=== PATIENT | female | born 1990 | race Caucasian/White ===

== ENCOUNTER 2017-02-05 17:26 | Outpatient (CLI) | payer OTHER ==
[~2017-02-05] VITALS: Ht 165.1 cm; Wt 122.0 kg
[~2017-02-05 17:26] MED LIST: ALBUTEROL SULF8.5 GM IH; CALCIUM 500 MG1 EACH PO; HYCODAN SYRUP480 ML PO; PREDNISONE20 MG PO; PRENATAL TABLE1 EAC3 PO
[2017-02-05 17:49] VITALS: BP 127/72
== END 2017-02-05 18:25 | disposition home or self-care (01) ==
LOC: LDRP-OP 17:26 → 2WEST 17:28
DX: O26.892 Other specified pregnancy related conditions, second trimester (principal); Z3A.25 25 weeks gestation of pregnancy
CPT/HCPCS: 59025; G0378

== ENCOUNTER 2017-02-13 21:26 | Outpatient (CLI) | payer OTHER ==
[2017-02-13 21:55] VITALS: BP 110/65
== END 2017-02-13 22:28 | disposition home or self-care (01) ==
LOC: LDRP-OP 21:26 → 2WEST 21:28 → LDRP-OP 06-21 19:28
DX: O26.892 Other specified pregnancy related conditions, second trimester (principal); Z3A.25 25 weeks gestation of pregnancy
CPT/HCPCS: 59025; G0378

== ENCOUNTER → 2017-02-28 | Outpatient (CLI) | payer BC ==
[2017-02-28 16:53] VITALS: BP 139/73
== END | disposition home or self-care (01) ==
LOC: IVINF 16:48
DX: Z29.13 Encounter for prophylactic Rho(D) immune globulin (principal); Z3A.28 28 weeks gestation of pregnancy
CPT/HCPCS: J2790

== ENCOUNTER 2017-04-12 17:05 | Outpatient (CLI) | payer BC ==
[2017-04-12 17:23] VITALS: BP 151/71
[2017-04-12 19:10] VITALS: BP 142/87
== END 2017-04-12 21:35 | disposition home or self-care (01) ==
LOC: LDRP-OP 17:05 → 2WEST 17:06 → LDRP-OP 06-21 22:39
DX: O9A.213 Injury, poisoning and certain other consequences of external causes complicating pregnancy, third trimester (principal); Z3A.34 34 weeks gestation of pregnancy; S80.02XA Contusion of left knee, initial encounter; W18.39XA Other fall on same level, initial encounter; Y93.F9 Activity, other caregiving; Y92.219 Unspecified school as the place of occurrence of the external cause; Y99.0 Civilian activity done for income or pay; Z87.891 Personal history of nicotine dependence
CPT/HCPCS: 59025; G0378

== ENCOUNTER 2017-05-09 11:25 | Inpatient (IN) | payer BC ==
[2017-05-09] VITALS (20 sets, daily range): BP systolic 131–185; BP diastolic 66–102
[~2017-05-09] VITALS: Ht 165.1 cm; Wt 135.0 kg
[2017-05-09 12:37] LABS: EOSINOPHIL (%) 0.6 % (0-5); EOSINOPHIL COUNT 0.1 K/uL (0-0.3); HEMATOCRIT 33.2 % (36.0-46.0); IMMATURE GRANULOCYTE (%) 0.5 % (0.0-0.7); IMMATURE GRANULOCYTE COUNT 0.1 K/uL; INSTRUMENT ABS NEUTROPHIL CT 10.6 K/uL; LYMPHOCYTE COUNT 1.1 K/uL (1.0-2.8); MCH 28.2 PG (29.0-34.0); MCHC 32.8 G/DL (30.0-36.0); MCV 85.8 FL (83-99); MEAN PLAT.VOLUME 11.6 uM^3 (9.5-12.4); MONOCYTE (%) 5.3 % (3-12); MONOCYTE COUNT 0.7 K/uL (0-0.8); NEUTROPHIL (%) 84.8 % (45-76); NEUTROPHIL COUNT 10.6 K/uL (1.8-6.4); PLATELET COUNT 192 K/uL (156-360); RBC DIS.WIDTH-CV 14.4 % (11.8-14.6); RBC DIS.WIDTH-SD 44.5 % (39-53); RED BLOOD COUNT 3.87 M/uL (3.80-5.20); WHITE BLOOD COUNT 12.4 K/uL (4.1-10.2)
[2017-05-09 13:18] LABS: ALKALINE PHOSPHATASE 150 IU/L (3-129); ANION GAP 12 MEQ/L (2-14); CHLORIDE 104 MEQ/L (99-109); GFR ESTIMATE (CALCULATED) > 59 mL/min/; GLUCOSE 75 mg/dL (70-99); POTASSIUM 4.1 MEQ/L (3.7-5.4); SAMPLE HEMOLYSIS CHECK 0; SAMPLE ICTERIC CHECK 0; SAMPLE LIPEMIA CHECK 0; SODIUM 136 MEQ/L (136-147); TOTAL BILIRUBIN 0.4 MG/DL (0.0-1.0); UREA NITROGEN (BUN) 9 mg/dL (9-23)
[2017-05-09 14:36] LABS: UR CREATININE CONCENTRATION 90.6 MG/DL
[2017-05-10] VITALS (32 sets, daily range): BP systolic 121–178; BP diastolic 61–92
[2017-05-10 19:24] LABS: EOSINOPHIL (%) 0.3 % (0-5); HEMATOCRIT 32.3 % (36.0-46.0); IMMATURE GRANULOCYTE (%) 0.5 % (0.0-0.7); IMMATURE GRANULOCYTE COUNT 0.1 K/uL; INSTRUMENT ABS NEUTROPHIL CT 10.6 K/uL; LYMPHOCYTE COUNT 1.4 K/uL (1.0-2.8); MCH 28.3 PG (29.0-34.0); MCHC 32.8 G/DL (30.0-36.0); MCV 86.4 FL (83-99); MEAN PLAT.VOLUME 11.6 uM^3 (9.5-12.4); MONOCYTE (%) 5.9 % (3-12); MONOCYTE COUNT 0.8 K/uL (0-0.8); NEUTROPHIL (%) 82.3 % (45-76); NEUTROPHIL COUNT 10.6 K/uL (1.8-6.4); PLATELET COUNT 197 K/uL (156-360); RBC DIS.WIDTH-CV 14.6 % (11.8-14.6); RBC DIS.WIDTH-SD 45.9 % (39-53); RED BLOOD COUNT 3.74 M/uL (3.80-5.20); WHITE BLOOD COUNT 12.9 K/uL (4.1-10.2)
[2017-05-10 19:44] LABS: ALKALINE PHOSPHATASE 149 IU/L (3-129); ANION GAP 9 MEQ/L (2-14); CHLORIDE 105 MEQ/L (99-109); GFR ESTIMATE (CALCULATED) > 59 mL/min/; GLUCOSE 82 mg/dL (70-99); POTASSIUM 3.8 MEQ/L (3.7-5.4); SAMPLE HEMOLYSIS CHECK 0; SAMPLE ICTERIC CHECK 0; SAMPLE LIPEMIA CHECK 0; SODIUM 136 MEQ/L (136-147); TOTAL BILIRUBIN 0.4 MG/DL (0.0-1.0); UREA NITROGEN (BUN) 8 mg/dL (9-23)
[2017-05-11] VITALS (26 sets, daily range): BP systolic 117–190; BP diastolic 65–99
[2017-05-11] MEDS ORDERED: ENDOCET 5-3251 EACH PO (16:01)
[2017-05-11] MEDS ORDERED: IBUPROFEN800 MG PO (16:01)
[2017-05-12] VITALS (25 sets, daily range): BP systolic 110–178; BP diastolic 56–99
[2017-05-12 05:43] LABS: EOSINOPHIL (%) 0.1 % (0-5); HEMATOCRIT 26.5 % (36.0-46.0); IMMATURE GRANULOCYTE (%) 0.6 % (0.0-0.7); IMMATURE GRANULOCYTE COUNT 0.1 K/uL; INSTRUMENT ABS NEUTROPHIL CT 11.8 K/uL; LYMPHOCYTE COUNT 1.4 K/uL (1.0-2.8); MCH 28.6 PG (29.0-34.0); MCHC 32.8 G/DL (30.0-36.0); MCV 87.2 FL (83-99); MEAN PLAT.VOLUME 11.8 uM^3 (9.5-12.4); MONOCYTE (%) 6.7 % (3-12); NEUTROPHIL (%) 82.9 % (45-76); NEUTROPHIL COUNT 11.8 K/uL (1.8-6.4); PLATELET COUNT 191 K/uL (156-360); RBC DIS.WIDTH-CV 14.7 % (11.8-14.6); RBC DIS.WIDTH-SD 46.2 % (39-53); RED BLOOD COUNT 3.04 M/uL (3.80-5.20); WHITE BLOOD COUNT 14.2 K/uL (4.1-10.2)
[2017-05-12 09:15] LABS: ALKALINE PHOSPHATASE 112 IU/L (3-129); ANION GAP 9 MEQ/L (2-14); CHLORIDE 107 MEQ/L (99-109); GFR ESTIMATE (CALCULATED) > 59 mL/min/; GLUCOSE 127 mg/dL (70-99); MAGNESIUM 2.9 mg/dl (1.3-2.7); SAMPLE HEMOLYSIS CHECK 0; SAMPLE ICTERIC CHECK 0; SAMPLE LIPEMIA CHECK 0; SODIUM 138 MEQ/L (136-147); UREA NITROGEN (BUN) 8 mg/dL (9-23)
[2017-05-12 09:16] LABS: TOTAL BILIRUBIN 0.3 MG/DL (0.0-1.0)
[2017-05-13 03:40] VITALS: BP 147/84
[2017-05-13 07:44] VITALS: BP 131/71
[2017-05-13 11:19] VITALS: BP 130/93
[2017-05-13 14:00] VITALS: BP 141/91
[2017-05-13 15:40] VITALS: BP 143/86
[2017-05-14 08:17] VITALS: BP 170/90
[2017-05-14 09:41] VITALS: BP 146/79
[2017-05-14 12:12] VITALS: BP 136/92
[2017-05-14 15:33] VITALS: BP 146/78
[2017-05-14 19:30] VITALS: BP 162/92
[2017-05-14 23:30] VITALS: BP 150/89
[2017-05-15 08:06] VITALS: BP 160/72
[2017-05-15 10:41] VITALS: BP 157/76
[2017-05-15 13:07] VITALS: BP 137/70
[2017-05-15] MEDS ORDERED: PROCARDIA XL30 MG PO (13:19)
[2017-05-15] MEDS ORDERED: NORMODYNE,TRAN300 MG PO (13:19)
== END 2017-05-15 14:15 | disposition home or self-care (01) | DRG 765 ==
LOC: LDRP-OP 11:25 → 2WEST 11:26 → LDRP-OP 06-21 21:48
PROVIDERS: Advanced Practice Midwife; Nurse Practitioner; Obstetrics & Gynecology; Obstetrics & Gynecology Gynecology
DX: O14.04 Mild to moderate pre-eclampsia, complicating childbirth (principal); O99.214 Obesity complicating childbirth; E66.01 Morbid (severe) obesity due to excess calories; Z68.41 Body mass index [BMI] 40.0-44.9, adult; O62.0 Primary inadequate contractions; O13.4 Gestational [pregnancy-induced] hypertension without significant proteinuria, complicating childbirth; O99.52 Diseases of the respiratory system complicating childbirth; J45.909 Unspecified asthma, uncomplicated; O36.0930 Maternal care for other rhesus isoimmunization, third trimester, not applicable or unspecified; L30.9 Dermatitis, unspecified; Z3A.38 38 weeks gestation of pregnancy; Z37.0 Single live birth
CPT/HCPCS: 80053; 82570; 83030; 83735; 84156; 85025; 86850; 86900; 86901; C1755; G0378; J0690; J1100; J1170; J2175; J2274; J2405; J2790; J3475; J7120